=== PATIENT | female | born 1955 | race Two or more races ===

== ENCOUNTER 2025-01-11 18:34 | Emergency (ER) | payer OTHER ==
[~2025-01-11] VITALS: Ht 170.2 cm; Wt 90.7 kg
[2025-01-11] MEDS ORDERED: HUMULIN 70100 UNIT/2 SUBCUTANEO (18:40)
[2025-01-11] MEDS ORDERED: AVAPRO300 MG PO (18:40)
[2025-01-11] MEDS ORDERED: KETOROLAC TROMETHAMINE 30 MG VIAL IV ONE (20:45)
[2025-01-11] MEDS ORDERED: KETOROLAC TROMETHAMINE 30 MG VIAL IM STA (21:25)
[2025-01-11] MEDS ORDERED: 8 HOUR650 MG PO (21:48)
== END 2025-01-11 22:23 | disposition home or self-care (01) ==
LOC: ER 18:37
DX: S00.93XA Contusion of unspecified part of head, initial encounter (principal); S20.213A Contusion of bilateral front wall of thorax, initial encounter; S80.12XA Contusion of left lower leg, initial encounter; S80.11XA Contusion of right lower leg, initial encounter; W18.39XA Other fall on same level, initial encounter; Y93.89 Activity, other specified; Y92.018 Other place in single-family (private) house as the place of occurrence of the external cause; Y99.9 Unspecified external cause status; E11.9 Type 2 diabetes mellitus without complications; Z79.4 Long term (current) use of insulin; I10 Essential (primary) hypertension; N28.9 Disorder of kidney and ureter, unspecified; Z88.8 Allergy status to other drugs, medicaments and biological substances
CPT/HCPCS: 70450; 71110; 73610; 96365; 96372; 99284; J1885

== ENCOUNTER 2025-10-06 12:26 | Inpatient (IN) | payer OTHER ==
[~2025-10-06] VITALS: Ht 152.4 cm; Wt 90.7 kg
[~2025-10-06 12:26] MED LIST: 8 HOUR650 MG PO; AVAPRO300 MG PO; HUMULIN 70100 UNIT/2 SUBCUTANEO
[2025-10-06] MEDS ORDERED: LYRICA150 MG PO (12:37)
[2025-10-06] MEDS ORDERED: 0.9 % SODIUM CHLORIDE 1,000 ML IV ONE (13:15)
[2025-10-06 14:00] LABS: BASO % 0.3 % (0.1-1.2); EOS # 0.00 (0.04-0.54); EOS % 0.0 % (0.7-7.0); LYMPH # 0.85 (1.18-3.74); LYMPH % 6.3 % (19.3-53.1); MEAN PLATELET VOLUME 11.80 fl (9.4-12.4); MONO # 1.68 (0.24-0.82); NEUT # 10.14 (1.56-6.13); NEUT % 75.3 % (34.0-71.1); RED CELL DISTRIBUTION WIDTH 13.2 % (11.6-14.4)
[2025-10-06 14:20] LABS: ALT/SGPT 20.0 U/L (12-78); AST/SGOT 22.0 U/L (15-37); BILIRUBIN TOTAL 1.09 mg/dL (0.3-1.2); BILIRUBIN,CONJUGATED 0.34 mg/dL (0.0-0.2); BUN CREA RATIO 23.0 (7.0-25.0); CREATININE SERUM 1.65 mg/dL (0.55-1.02); GFR 30.58; OSMOLALITY SERUM 291.0 MOSM/KG (275-295)
[2025-10-06 14:22] LABS: GLUCOSE FASTING 242.0 mg/dL (65-100)
[2025-10-06 14:25] LABS: MONO % 12.5 % (4.7-12.5)
[2025-10-06 14:26] LABS: BAND MAN 2.0 %; LYMPHOCYTE MAN 4.0 %; MONOCYTE MAN 12.0 %; NEUTROPHILS MAN 82.0 %
[2025-10-06] MEDS ORDERED: INSULIN LISPRO 1,000 UNIT/10 ML UNITS SUBCUTANEO ONE (15:00)
[2025-10-06 15:21] LABS: URINE APPEARANCE Clear; URINE BILIRRUBIN Negative (NEGATIVE); URINE BLOOD Trace; URINE COLOR Yellow; URINE GLUCOSE Negative (NEGATIVE); URINE KETONE Negative (NEGATIVE); URINE LEUKOCYTE Negative; URINE NITRATE Negative; URINE PROTEIN 30 (NEGATIVE); URINE UROBILINOGEN 0.2 E.U./dl
[2025-10-06 15:26] LABS: URINE BACTERIA 5.9 uL (0.0-1933); URINE CAST 3.95 uL (0.0-1.40); URINE EPITHELIAL CELLS 26.5 uL (0.0-38.8); URINE RBC 3.5 uL (0.0-20.8); URINE WBC 5.2 uL (0.0-23.2)
[2025-10-06 15:52] LABS: COVID-19 AG NEGATIVE (NEGATIVE)
[2025-10-06 15:54] LABS: TYPE CELLS SQUAMOUS
[2025-10-06] MEDS ORDERED: CEFTRIAXONE SODIUM 2,000 MG VIAL IV ONE (16:30)
[2025-10-06] MEDS ORDERED: ACETAMINOPHEN 500 MG GEL..CAP PO ONE (16:45)
[2025-10-06] MEDS ORDERED: CIPROFLOXACIN IN 5 % DEXTROSE 200 ML IV SCH (18:00)
[2025-10-06] MEDS ORDERED: LACTOBACILLUS ACIDOPHILUS 1 CAP CAP PO SCH (18:04)
[2025-10-06] MEDS ORDERED: INSULIN LISPRO 1,000 UNIT/10 ML UNITS SUBCUTANEO PRN ×2 (18:15)
[2025-10-06] MEDS ORDERED: DEXTROSE 50 % IN WATER 0.5 G/ML DISP.SYRIN IV PRN (18:15)
[2025-10-06 19:43] VITALS: BP 114/64
[2025-10-06] MEDS ORDERED: ACETAMINOPHEN 500 MG GEL..CAP PO SCH (20:00)
[2025-10-06] MEDS ORDERED: MORPHINE SULFATE 4 MG/ML CARTRIDGE IV PRN (21:30)
[2025-10-06 22:53] VITALS: BP 130/60; O2SAT 97
[2025-10-07 01:11] VITALS: BP 112/63; O2SAT 97
[2025-10-07] MEDS ORDERED: 0.9 % SODIUM CHLORIDE 1,000 ML IV SCH (05:30)
[2025-10-07 06:59] LABS: BASO % 0.2 % (0.1-1.2); EOS # 0.00 (0.04-0.54); EOS % 0.0 % (0.7-7.0); LYMPH # 0.87 (1.18-3.74); LYMPH % 4.7 % (19.3-53.1); MEAN PLATELET VOLUME 12.10 fl (9.4-12.4); MONO # 2.20 (0.24-0.82); MONO % 11.8 % (4.7-12.5); NEUT # 15.12 (1.56-6.13); NEUT % 81.2 % (34.0-71.1); RED CELL DISTRIBUTION WIDTH 13.4 % (11.6-14.4)
[2025-10-07 07:22] LABS: INR 1.11
[2025-10-07] MEDS ORDERED: IRBESARTAN 300 MG TABLET PO SCH (09:00)
[2025-10-07] MEDS ORDERED: ROSUVASTATIN CALCIUM 20 MG TABLET PO SCH (09:00)
[2025-10-07] MEDS ORDERED: CEFTRIAXONE SODIUM 2,000 MG in 0.9 % SODIUM CHLORIDE 100 ML IV SCH (09:00)
[2025-10-07] MEDS ORDERED: FAMOTIDINE/PF 20 MG in 0.9 % SODIUM CHLORIDE 100 ML IV SCH (09:00)
[2025-10-07 09:23] VITALS: BP 127/66; O2SAT 97
[2025-10-07] MEDS ORDERED: INSULIN NPH HUM/REG INSULIN HM 1,000 UNIT/10 ML UNITS SUBCUTANEO NR (13:00)
[2025-10-07] MEDS ORDERED: DIATRIZOATE MEGLUMINE, SODIUM 30 ML BOTTLE PO NR (16:00)
[2025-10-07] MEDS ORDERED: AZITHROMYCIN 500 MG VIAL IV SCH (17:00)
[2025-10-07] MEDS ORDERED: LACTOBACILLUS ACIDOPHILUS 1 CAP CAP PO SCH (17:00)
[2025-10-07 17:43] VITALS: BP 124/71
[2025-10-07 17:46] VITALS: BP 118/62
[2025-10-07] MEDS ORDERED: INSULIN NPH HUM/REG INSULIN HM 1,000 UNIT/10 ML UNITS SUBCUTANEO SCH (20:00)
[2025-10-08 03:20] VITALS: BP 105/59; O2SAT 97
[2025-10-08 08:55] VITALS: BP 102/53; O2SAT 98
[2025-10-08] MEDS ORDERED: INSULIN NPH HUM/REG INSULIN HM 1,000 UNIT/10 ML UNITS SUBCUTANEO SCH (09:00)
[2025-10-08 12:35] LABS: BASO % 0.2 % (0.1-1.2); EOS # 0.02 (0.04-0.54); EOS % 0.1 % (0.7-7.0); LYMPH # 1.18 (1.18-3.74); LYMPH % 7.3 % (19.3-53.1); MEAN PLATELET VOLUME 11.70 fl (9.4-12.4); MONO # 1.52 (0.24-0.82); MONO % 9.4 % (4.7-12.5); NEUT # 12.70 (1.56-6.13); NEUT % 78.8 % (34.0-71.1); RED CELL DISTRIBUTION WIDTH 13.3 % (11.6-14.4)
[2025-10-08 13:04] LABS: ALT/SGPT 19.0 U/L (12-78); AST/SGOT 31.0 U/L (15-37); BILIRUBIN TOTAL 0.43 mg/dL (0.3-1.2); BUN CREA RATIO 29.0 (7.0-25.0); CREATININE SERUM 1.49 mg/dL (0.55-1.02); GFR 34.4; GLOBULINA 3.4 G/DL (2.4-3.5); GLUCOSE FASTING 335.0 mg/dL (65-100); OSMOLALITY SERUM 294.0 MOSM/KG (275-295)
[2025-10-08 13:09] LABS: LDH 262.0 U/L (84-246)
[2025-10-08 18:19] VITALS: BP 125/65
[2025-10-09 02:41] VITALS: BP 103/61; O2SAT 96
[2025-10-09 08:27] VITALS: BP 94/57; O2SAT 96
[2025-10-09] MEDS ORDERED: INSULIN NPH HUM/REG INSULIN HM 1,000 UNIT/10 ML UNITS SUBCUTANEO SCH ×2 (09:01→17:00)
[2025-10-09] MEDS ORDERED: DIATRIZOATE MEGLUMINE, SODIUM 30 ML BOTTLE PO NR (11:15)
[2025-10-09] MEDS ORDERED: PIPERACILLIN/TAZOBACTAM SODIUM 3.375 GM in DEXTROSE 5 % IN WATER 100 ML IV NR (14:45)
[2025-10-09] MEDS ORDERED: VANCOMYCIN HCL 1,000 MG VIAL IV SCH (16:00)
[2025-10-09 18:03] VITALS: BP 143/77
[2025-10-09] MEDS ORDERED: PIPERACILLIN/TAZOBACTAM SODIUM 3.375 GM in DEXTROSE 5 % IN WATER 100 ML IV SCH (20:00)
[2025-10-10 02:11] VITALS: BP 130/70; O2SAT 99
[2025-10-10 06:48] LABS: BASO % 0.1 % (0.1-1.2); EOS # 0.01 (0.04-0.54); EOS % 0.1 % (0.7-7.0); LYMPH # 0.81 (1.18-3.74); LYMPH % 5.5 % (19.3-53.1); MEAN PLATELET VOLUME 11.00 fl (9.4-12.4); MONO # 2.21 (0.24-0.82); NEUT # 11.24 (1.56-6.13); NEUT % 75.8 % (34.0-71.1); RED CELL DISTRIBUTION WIDTH 13.6 % (11.6-14.4)
[2025-10-10 07:36] LABS: ALT/SGPT 29.0 U/L (12-78); AST/SGOT 43.0 U/L (15-37); BILIRUBIN TOTAL 0.61 mg/dL (0.3-1.2); BUN CREA RATIO 22.0 (7.0-25.0); CREATININE SERUM 1.34 mg/dL (0.55-1.02); GFR 38.88; GLOBULINA 3.3 G/DL (2.4-3.5); OSMOLALITY SERUM 294.0 MOSM/KG (275-295)
[2025-10-10 07:38] LABS: GLUCOSE FASTING 313.0 mg/dL (65-100)
[2025-10-10 07:57] LABS: BAND MAN 5.0 %; LYMPHOCYTE MAN 10.0 %; MONO % 14.9 % (4.7-12.5); NEUTROPHILS MAN 80.0 %
[2025-10-10 08:54] VITALS: BP 152/74; O2SAT 100
[2025-10-10] MEDS ORDERED: MAGNESIUM SULFATE IN WATER 2 GM/50 ML PIGGYBAG IV NR (13:00)
[2025-10-10] MEDS ORDERED: POTASSIUM PHOS,M-BASIC-D-BASIC 3 MM/ML VIAL IV NR (15:00)
[2025-10-10] MEDS ORDERED: LINEZOLID 600 MG TABLET PO SCH (17:00)
[2025-10-10 22:56] VITALS: BP 114/60
[2025-10-11 03:45] VITALS: BP 106/55; O2SAT 100
[2025-10-11 05:44] LABS: BASO % 0.4 % (0.1-1.2); EOS # 0.03 (0.04-0.54); EOS % 0.2 % (0.7-7.0); LYMPH # 1.30 (1.18-3.74); LYMPH % 8.9 % (19.3-53.1); MEAN PLATELET VOLUME 10.50 fl (9.4-12.4); MONO # 1.41 (0.24-0.82); MONO % 9.6 % (4.7-12.5); NEUT # 10.96 (1.56-6.13); NEUT % 74.7 % (34.0-71.1); RED CELL DISTRIBUTION WIDTH 13.9 % (11.6-14.4)
[2025-10-11 06:45] LABS: BAND MAN 7.0 %; LYMPHOCYTE MAN 10.0 %; MONOCYTE MAN 10.0 %; MYELOCYTE 1.0 %; NEUTROPHILS MAN 71.0 %
[2025-10-11 06:47] LABS: ALT/SGPT 60.0 U/L (12-78); AST/SGOT 88.0 U/L (15-37); BILIRUBIN TOTAL 0.49 mg/dL (0.3-1.2); BUN CREA RATIO 18.0 (7.0-25.0); CREATININE SERUM 1.42 mg/dL (0.55-1.02); GFR 36.36; GLOBULINA 3.9 G/DL (2.4-3.5); GLUCOSE FASTING 165.0 mg/dL (65-100); OSMOLALITY SERUM 287.0 MOSM/KG (275-295)
[2025-10-11 08:00] VITALS: BP 155/76; O2SAT 97
[2025-10-11] MEDS ORDERED: AZITHROMYCIN 500 MG VIAL IV ONE (15:59)
[2025-10-11 19:10] VITALS: BP 129/67; O2SAT 100
[2025-10-12 02:25] VITALS: BP 150/73; O2SAT 100
[2025-10-12] MEDS ORDERED: SODIUM CHLORIDE 0.45 % 1,000 ML IV SCH (06:30)
[2025-10-12 08:00] VITALS: BP 134/73; O2SAT 93
[2025-10-12] MEDS ORDERED: CLOPIDOGREL BISULFATE 75 MG TABLET PO SCH (09:00)
[2025-10-12] MEDS ORDERED: AZITHROMYCIN 500 MG VIAL IV ONE (15:57)
[2025-10-12] MEDS ORDERED: CEFAZOLIN SODIUM 2,000 MG in 0.9 % SODIUM CHLORIDE 100 ML IV SCH (17:00)
[2025-10-12 17:53] VITALS: BP 154/77
[2025-10-12 19:20] LABS: BASO % 0.3 % (0.1-1.2); EOS # 0.03 (0.04-0.54); EOS % 0.2 % (0.7-7.0); LYMPH # 1.46 (1.18-3.74); LYMPH % 11.3 % (19.3-53.1); MEAN PLATELET VOLUME 10.70 fl (9.4-12.4); MONO # 1.56 (0.24-0.82); NEUT # 8.11 (1.56-6.13); NEUT % 63.0 % (34.0-71.1); RED CELL DISTRIBUTION WIDTH 14.2 % (11.6-14.4)
[2025-10-12 20:00] LABS: MONO % 12.1 % (4.7-12.5); NEUTROPHILS MAN 62.0 %
[2025-10-12 20:01] LABS: EOSINOPHIL MAN 1.0 %; LYMPHOCYTE MAN 13.0 %; METAMYELOCYTE 4.0 %; MONOCYTE MAN 11.0 %; MYELOCYTE 3.0 %
[2025-10-13 02:50] VITALS: BP 118/67; O2SAT 95
[2025-10-13 08:54] VITALS: BP 181/93; O2SAT 97
[2025-10-13 16:07] LABS: BASO % 0.9 % (0.1-1.2); EOS # 0.04 (0.04-0.54); EOS % 0.3 % (0.7-7.0); LYMPH # 1.57 (1.18-3.74); LYMPH % 11.2 % (19.3-53.1); MEAN PLATELET VOLUME 10.80 fl (9.4-12.4); MONO # 1.89 (0.24-0.82); NEUT # 8.47 (1.56-6.13); NEUT % 60.1 % (34.0-71.1); RED CELL DISTRIBUTION WIDTH 13.9 % (11.6-14.4)
[2025-10-13 16:42] LABS: ALT/SGPT 53.0 U/L (12-78); AST/SGOT 43.0 U/L (15-37); BILIRUBIN TOTAL 0.76 mg/dL (0.3-1.2); BUN CREA RATIO 16.0 (7.0-25.0); CREATININE SERUM 1.11 mg/dL (0.55-1.02); GFR 48.32; GLOBULINA 4.0 G/DL (2.4-3.5); GLUCOSE FASTING 146.0 mg/dL (65-100); OSMOLALITY SERUM 282.0 MOSM/KG (275-295)
[2025-10-13] MEDS ORDERED: LINEZOLID 600 MG TABLET PO SCH (17:00)
[2025-10-13] MEDS ORDERED: AZITHROMYCIN 500 MG VIAL IV ONE (17:06)
[2025-10-13 18:10] VITALS: BP 155/67
[2025-10-13 18:26] LABS: BAND MAN 4.0 %; LYMPHOCYTE MAN 6.0 %; METAMYELOCYTE 6.0 %; MONO % 13.4 % (4.7-12.5); MONOCYTE MAN 10.0 %; MYELOCYTE 7.0 %; PROMYELOCYTE 1.0 %
[2025-10-13 18:27] LABS: NEUTROPHILS MAN 66.0 %
[2025-10-13] MEDS ORDERED: PIPERACILLIN/TAZOBACTAM SODIUM 3.375 GM in DEXTROSE 5 % IN WATER 100 ML IV SCH (20:00)
[2025-10-14 02:38] VITALS: BP 135/72; O2SAT 95
[2025-10-14] MEDS ORDERED: PIPERACILLIN/TAZOBACTAM SODIUM 3.375 GM VIAL IV ONE ×2 (08:19→11:13)
[2025-10-14 08:36] VITALS: BP 156/75; O2SAT 97
[2025-10-14 12:03] LABS: ob POSITIVE (NEGATIVE)
[2025-10-14] MEDS ORDERED: SODIUM CHLORIDE 0.45 % 1,000 ML IV SCH (12:30)
[2025-10-14] MEDS ORDERED: BISMUTH SUBSALICYLATE 524 MG/30 ML BLIST.PACK PO PRN (15:45)
[2025-10-14 18:47] VITALS: BP 153/72; O2SAT 100
[2025-10-15 02:26] VITALS: BP 150/65; O2SAT 99
[2025-10-15 07:19] LABS: BASO % 0.5 % (0.1-1.2); EOS # 0.04 (0.04-0.54); EOS % 0.3 % (0.7-7.0); LYMPH # 1.72 (1.18-3.74); LYMPH % 12.0 % (19.3-53.1); MEAN PLATELET VOLUME 10.80 fl (9.4-12.4); MONO # 2.11 (0.24-0.82); NEUT # 8.80 (1.56-6.13); NEUT % 61.3 % (34.0-71.1); RED CELL DISTRIBUTION WIDTH 13.8 % (11.6-14.4)
[2025-10-15 07:49] LABS: ALT/SGPT 32.0 U/L (12-78); AST/SGOT 27.0 U/L (15-37); BILIRUBIN TOTAL 0.72 mg/dL (0.3-1.2); BUN CREA RATIO 21.0 (7.0-25.0); CREATININE SERUM 1.17 mg/dL (0.55-1.02); GFR 45.47; GLOBULINA 3.5 G/DL (2.4-3.5); OSMOLALITY SERUM 290.0 MOSM/KG (275-295)
[2025-10-15 08:20] LABS: GLUCOSE FASTING 216.0 mg/dL (65-100)
[2025-10-15] MEDS ORDERED: INSULIN NPH HUM/REG INSULIN HM 1,000 UNIT/10 ML UNITS SUBCUTANEO SCH (09:00)
[2025-10-15 09:20] LABS: BAND MAN 9.0 %; LYMPHOCYTE MAN 10.0 %; MONO % 14.7 % (4.7-12.5); NEUTROPHILS MAN 64.0 %
[2025-10-15 09:21] LABS: METAMYELOCYTE 1.0 %; MONOCYTE MAN 9.0 %; MYELOCYTE 3.0 %
[2025-10-15 09:28] VITALS: BP 153/76; O2SAT 97
[2025-10-15] MEDS ORDERED: CHOLESTYRAMINE/ASPARTAME LIGHT 4 G/PKT PACKET PO SCH (17:00)
[2025-10-15] MEDS ORDERED: LINEZOLID IN DEXTROSE 5% 300 ML IV SCH (17:00)
[2025-10-15 17:51] VITALS: BP 158/72; O2SAT 100
[2025-10-15] MEDS ORDERED: MEROPENEM 500 MG/VIAL VIAL IV SCH (18:00)
[2025-10-15] MEDS ORDERED: MAGNESIUM SULFATE IN WATER 50 ML IV ONE (18:30)
[2025-10-16 02:16] VITALS: BP 130/59; O2SAT 98
[2025-10-16 09:21] VITALS: BP 153/81; O2SAT 97
[2025-10-16] MEDS ORDERED: PREGABALIN PO NR (09:45)
[2025-10-16 17:27] LABS: BUN CREA RATIO 18.0 (7.0-25.0); CREATININE SERUM 1.08 mg/dL (0.55-1.02); GFR 49.87
[2025-10-16 17:33] LABS: OSMOLALITY SERUM 292.0 MOSM/KG (275-295)
[2025-10-16 17:36] LABS: GLUCOSE FASTING 255.0 mg/dL (65-100)
[2025-10-16] MEDS ORDERED: POTASSIUM PHOS,M-BASIC-D-BASIC 15 MM in 0.9 % SODIUM CHLORIDE 250 ML IV ONE (18:00)
[2025-10-16 18:12] VITALS: BP 150/73; O2SAT 100
[2025-10-17 03:09] VITALS: BP 156/75; O2SAT 99
[2025-10-17] MEDS ORDERED: PREGABALIN PO SCH (09:00)
[2025-10-17] MEDS ORDERED: INSULIN NPH HUM/REG INSULIN HM 1,000 UNIT/10 ML UNITS SUBCUTANEO SCH ×2 (09:00→17:00)
[2025-10-17 09:37] LABS: ALT/SGPT 35.0 U/L (12-78); AST/SGOT 27.0 U/L (15-37); BILIRUBIN TOTAL 0.61 mg/dL (0.3-1.2); BUN CREA RATIO 15.0 (7.0-25.0); CREATININE SERUM 1.14 mg/dL (0.55-1.02); GFR 46.85; GLOBULINA 4.1 G/DL (2.4-3.5); OSMOLALITY SERUM 291.0 MOSM/KG (275-295)
[2025-10-17 09:39] LABS: GLUCOSE FASTING 287.0 mg/dL (65-100)
[2025-10-17 11:24] VITALS: BP 162/82; O2SAT 98
[2025-10-17 16:21] VITALS: BP 151/74; O2SAT 96
[2025-10-18 00:52] VITALS: BP 125/66; O2SAT 98
[2025-10-18] MEDS ORDERED: MAGNESIUM SULFATE IN WATER 50 ML IV SCH (08:00)
[2025-10-18] MEDS ORDERED: INSULIN NPH HUM/REG INSULIN HM 1,000 UNIT/10 ML UNITS SUBCUTANEO SCH (08:00)
[2025-10-18] MEDS ORDERED: 0.9 % SODIUM CHLORIDE 1,000 ML IV SCH (08:00)
[2025-10-18] MEDS ORDERED: PREGABALIN 100 MG CAPSULE PO SCH (09:00)
[2025-10-18] MEDS ORDERED: AMINO ACIDS 1 EACH TABLET PO SCH (09:00)
[2025-10-18 09:07] VITALS: BP 159/80; O2SAT 99
[2025-10-18] MEDS ORDERED: POTASSIUM PHOS,M-BASIC-D-BASIC 18 MM in 0.9 % SODIUM CHLORIDE 250 ML IV ONE (10:00)
[2025-10-18] MEDS ORDERED: MEROPENEM 500 MG/VIAL VIAL IV SCH (13:00)
[2025-10-18] MEDS ORDERED: AMLODIPINE BESYLATE 5 MG TABLET PO SCH (17:00)
[2025-10-18 18:07] VITALS: BP 160/77; O2SAT 98
[2025-10-19 03:08] VITALS: BP 130/68; O2SAT 96
[2025-10-19 06:19] LABS: BASO % 0.6 % (0.1-1.2); EOS # 0.05 (0.04-0.54); EOS % 0.6 % (0.7-7.0); LYMPH # 1.89 (1.18-3.74); LYMPH % 21.9 % (19.3-53.1); MEAN PLATELET VOLUME 10.10 fl (9.4-12.4); MONO # 1.46 (0.24-0.82); NEUT # 4.62 (1.56-6.13); NEUT % 53.6 % (34.0-71.1); RED CELL DISTRIBUTION WIDTH 13.5 % (11.6-14.4)
[2025-10-19 06:52] LABS: BUN CREA RATIO 36.0 (7.0-25.0); CREATININE SERUM 0.99 mg/dL (0.55-1.02); GFR 55.14; GLUCOSE FASTING 194.0 mg/dL (65-100); OSMOLALITY SERUM 295.0 MOSM/KG (275-295)
[2025-10-19 07:09] LABS: BAND MAN 2.0 %; EOSINOPHIL MAN 1.0 %; LYMPHOCYTE MAN 19.0 %; MONO % 16.9 % (4.7-12.5); MONOCYTE MAN 16.0 %; NEUTROPHILS MAN 59.0 %
[2025-10-19] MEDS ORDERED: INSULIN NPH HUM/REG INSULIN HM 1,000 UNIT/10 ML UNITS SUBCUTANEO SCH ×2 (08:00→17:00)
[2025-10-19 09:21] VITALS: BP 160/75; O2SAT 98
[2025-10-19 18:02] VITALS: BP 148/74
[2025-10-20 03:10] VITALS: BP 166/85; O2SAT 98
[2025-10-20] MEDS ORDERED: INSULIN NPH HUM/REG INSULIN HM 1,000 UNIT/10 ML UNITS SUBCUTANEO SCH (08:00)
[2025-10-20 09:20] VITALS: BP 156/79; O2SAT 98
[2025-10-20 21:58] VITALS: BP 137/69
[2025-10-21 03:02] VITALS: BP 130/72; O2SAT 97
[2025-10-21] MEDS ORDERED: INSULIN NPH HUM/REG INSULIN HM 1,000 UNIT/10 ML UNITS SUBCUTANEO SCH ×2 (09:00→17:00)
[2025-10-21 10:13] VITALS: BP 134/71; O2SAT 97
[2025-10-21 21:27] VITALS: BP 104/65
[2025-10-22 01:01] VITALS: BP 135/63; O2SAT 97
[2025-10-22] MEDS ORDERED: INSULIN NPH HUM/REG INSULIN HM 1,000 UNIT/10 ML UNITS SUBCUTANEO SCH (17:00)
[2025-10-22 17:44] VITALS: BP 127/74; O2SAT 100
[2025-10-23 02:28] VITALS: BP 111/65; O2SAT 96
[2025-10-23 10:02] VITALS: BP 145/69; O2SAT 97
[2025-10-23 18:19] VITALS: BP 154/76; O2SAT 100
[2025-10-23] MEDS ORDERED: BISMUTH SUBSALICYLATE 524 MG/30 ML BLIST.PACK PO SCH (21:42)
[2025-10-24 01:04] VITALS: BP 123/71; O2SAT 97
[2025-10-24 06:16] LABS: BASO % 0.5 % (0.1-1.2); EOS # 0.05 (0.04-0.54); EOS % 0.8 % (0.7-7.0); LYMPH # 2.10 (1.18-3.74); LYMPH % 33.8 % (19.3-53.1); MEAN PLATELET VOLUME 10.20 fl (9.4-12.4); MONO # 1.27 (0.24-0.82); NEUT # 2.55 (1.56-6.13); NEUT % 41.0 % (34.0-71.1); RED CELL DISTRIBUTION WIDTH 13.2 % (11.6-14.4)
[2025-10-24 07:05] LABS: ALT/SGPT 26.0 U/L (12-78); AST/SGOT 28.0 U/L (15-37); BILIRUBIN TOTAL 0.46 mg/dL (0.3-1.2); BUN CREA RATIO 40.0 (7.0-25.0); CREATININE SERUM 1.07 mg/dL (0.55-1.02); GFR 50.41; GLOBULINA 4.3 G/DL (2.4-3.5); GLUCOSE FASTING 103.0 mg/dL (65-100); OSMOLALITY SERUM 294.0 MOSM/KG (275-295)
[2025-10-24 07:17] LABS: EOSINOPHIL MAN 1.0 %; LYMPHOCYTE MAN 36.0 %; METAMYELOCYTE 1.0 %; MONO % 20.5 % (4.7-12.5); MONOCYTE MAN 17.0 %; NEUTROPHILS MAN 43.0 %
[2025-10-24 08:18] VITALS: BP 145/76; O2SAT 97
[2025-10-24] MEDS ORDERED: HYDROCORTISONE 2.5% 30 GM TUBE RECTAL SCH (09:00)
[2025-10-24 21:26] VITALS: BP 151/88
[2025-10-25 00:48] VITALS: BP 115/60; O2SAT 97
[2025-10-25 10:36] VITALS: BP 130/65; O2SAT 98
[2025-10-25] MEDS ORDERED: PREGABALIN 100 MG CAPSULE PO SCH (17:00)
[2025-10-26 01:44] VITALS: BP 135/70; O2SAT 97
[2025-10-26 08:27] LABS: BASO % 0.6 % (0.1-1.2); EOS # 0.05 (0.04-0.54); EOS % 1.0 % (0.7-7.0); LYMPH # 1.89 (1.18-3.74); LYMPH % 37.4 % (19.3-53.1); MEAN PLATELET VOLUME 10.20 fl (9.4-12.4); MONO # 1.04 (0.24-0.82); NEUT # 1.85 (1.56-6.13); NEUT % 36.4 % (34.0-71.1); RED CELL DISTRIBUTION WIDTH 13.3 % (11.6-14.4)
[2025-10-26 08:59] VITALS: BP 150/73; O2SAT 98
[2025-10-26] MEDS ORDERED: ZINC OXIDE 30 GM,NYSTATIN 30 GM,SILVER SULFADIAZINE 50 GM TOP SCH ×2 (09:00→17:00)
[2025-10-26 09:06] LABS: ALT/SGPT 28.0 U/L (12-78); AST/SGOT 30.0 U/L (15-37); BAND MAN 4.0 %; BILIRUBIN TOTAL 0.43 mg/dL (0.3-1.2); BUN CREA RATIO 36.0 (7.0-25.0); CREATININE SERUM 0.97 mg/dL (0.55-1.02); GFR 56.45; GLOBULINA 4.2 G/DL (2.4-3.5); GLUCOSE FASTING 141.0 mg/dL (65-100); LYMPHOCYTE MAN 38.0 %; MONO % 20.6 % (4.7-12.5); MONOCYTE MAN 15.0 %; MYELOCYTE 1.0 %; NEUTROPHILS MAN 36.0 %; OSMOLALITY SERUM 295.0 MOSM/KG (275-295)
[2025-10-26 21:48] VITALS: BP 135/84
[2025-10-27 01:42] VITALS: BP 103/58; O2SAT 97
[2025-10-27 08:53] VITALS: BP 116/69; O2SAT 98
[2025-10-27] MEDS ORDERED: INSULIN NPH HUM/REG INSULIN HM 1,000 UNIT/10 ML UNITS SUBCUTANEO SCH (17:00)
[2025-10-27 18:28] VITALS: BP 160/84; O2SAT 97
[2025-10-28 01:28] VITALS: BP 121/68; O2SAT 96
[2025-10-28 08:50] VITALS: BP 145/82; O2SAT 99
[2025-10-28 18:10] VITALS: BP 130/76; O2SAT 100
[2025-10-29 03:49] VITALS: BP 114/64; O2SAT 99
[2025-10-29 07:40] LABS: BASO % 0.5 % (0.1-1.2); EOS # 0.05 (0.04-0.54); EOS % 0.8 % (0.7-7.0); LYMPH # 2.11 (1.18-3.74); LYMPH % 35.0 % (19.3-53.1); MEAN PLATELET VOLUME 10.50 fl (9.4-12.4); MONO # 1.05 (0.24-0.82); NEUT # 2.47 (1.56-6.13); NEUT % 41.2 % (34.0-71.1); RED CELL DISTRIBUTION WIDTH 13.4 % (11.6-14.4)
[2025-10-29 07:42] LABS: MONO % 17.4 % (4.7-12.5)
[2025-10-29 07:50] LABS: ALT/SGPT 26.0 U/L (12-78); AST/SGOT 29.0 U/L (15-37); BILIRUBIN TOTAL 0.51 mg/dL (0.3-1.2); BUN CREA RATIO 37.0 (7.0-25.0); CREATININE SERUM 1.03 mg/dL (0.55-1.02); GFR 52.67; GLOBULINA 4.1 G/DL (2.4-3.5); GLUCOSE FASTING 71.0 mg/dL (65-100); OSMOLALITY SERUM 294.0 MOSM/KG (275-295)
[2025-10-29 11:20] VITALS: BP 129/72; O2SAT 97
[2025-10-29] MEDS ORDERED: INSULIN NPH HUM/REG INSULIN HM 1,000 UNIT/10 ML UNITS SUBCUTANEO SCH (17:00)
[2025-10-29 19:48] VITALS: BP 134/71
[2025-10-30] MEDS ORDERED: BISMUTH SUBSALICYLATE 524 MG/30 ML BLIST.PACK PO SCH
[2025-10-30 02:12] VITALS: BP 123/75; O2SAT 100
[2025-10-30] MEDS ORDERED: EPOETIN ALFA-EPBX 10,000 UNIT/ML VIAL (Retacrit) SUBCUTANEO SCH (09:00)
[2025-10-30 09:35] VITALS: BP 126/72; O2SAT 98
[2025-10-30 19:47] VITALS: BP 165/75
[2025-10-31 02:41] VITALS: BP 115/69; O2SAT 99
[2025-10-31 06:11] LABS: BASO % 0.4 % (0.1-1.2); EOS # 0.07 (0.04-0.54); EOS % 1.3 % (0.7-7.0); LYMPH # 2.23 (1.18-3.74); LYMPH % 40.5 % (19.3-53.1); MEAN PLATELET VOLUME 10.80 fl (9.4-12.4); MONO # 0.71 (0.24-0.82); NEUT # 2.08 (1.56-6.13); NEUT % 37.6 % (34.0-71.1); RED CELL DISTRIBUTION WIDTH 14.3 % (11.6-14.4)
[2025-10-31 07:10] LABS: ALT/SGPT 25.0 U/L (12-78); AST/SGOT 27.0 U/L (15-37); BILIRUBIN TOTAL 0.54 mg/dL (0.3-1.2); BUN CREA RATIO 37.0 (7.0-25.0); CREATININE SERUM 0.94 mg/dL (0.55-1.02); GFR 58.53; GLOBULINA 4.3 G/DL (2.4-3.5); GLUCOSE FASTING 77.0 mg/dL (65-100); OSMOLALITY SERUM 294.0 MOSM/KG (275-295)
[2025-10-31 07:23] LABS: BAND MAN 2.0 %; EOSINOPHIL MAN 2.0 %; LYMPHOCYTE MAN 38.0 %; METAMYELOCYTE 2.0 %; MONO % 12.9 % (4.7-12.5); MONOCYTE MAN 11.0 %; NEUTROPHILS MAN 41.0 %
[2025-10-31] MEDS ORDERED: INSULIN NPH HUM/REG INSULIN HM 1,000 UNIT/10 ML UNITS SUBCUTANEO SCH ×2 (08:00→17:00)
[2025-10-31] MEDS ORDERED: CEFAZOLIN SODIUM 2,000 MG in DEXTROSE 5 % IN WATER 100 ML IV SCH (17:00)
[2025-10-31 19:05] VITALS: BP 130/75; O2SAT 100
[2025-11-01 03:00] VITALS: BP 123/67; O2SAT 96
[2025-11-01 09:46] VITALS: BP 127/72; O2SAT 98
[2025-11-01 18:07] VITALS: BP 147/76
[2025-11-02 02:28] VITALS: BP 125/76; O2SAT 98
[2025-11-02 09:34] VITALS: BP 150/76; O2SAT 99
== END 2025-11-02 15:38 | disposition home or self-care (01) | DRG 682 ==
LOC: ER 12:27 → MEDJ 18:39 → O/R 10-10 09:02 → MEDJ 10-10 09:03
PROVIDERS: Emergency Medicine; Internal Medicine; Internal Medicine Infectious Disease; Internal Medicine Nephrology; ADMIT Internal Medicine; ATTEND Internal Medicine
PROC: B020ZZZ Computerized Tomography (CT Scan) of Brain (ICD-10-PCS; principal; 2025-10-06)
PROC: B030ZZZ Magnetic Resonance Imaging (MRI) of Brain (ICD-10-PCS; 2025-10-06)
PROC: BW21ZZZ Computerized Tomography (CT Scan) of Abdomen and Pelvis (ICD-10-PCS; 2025-10-07)
PROC: BR20ZZZ Computerized Tomography (CT Scan) of Cervical Spine (ICD-10-PCS; 2025-10-07)
PROC: BW24ZZZ Computerized Tomography (CT Scan) of Chest and Abdomen (ICD-10-PCS; 2025-10-07)
PROC: B345ZZZ Ultrasonography of Bilateral Common Carotid Arteries (ICD-10-PCS; 2025-10-07)
PROC: B24BYZZ Ultrasonography of Heart with Aorta using Other Contrast (ICD-10-PCS; 2025-10-07)
PROC: 02HV33Z Insertion of Infusion Device into Superior Vena Cava, Percutaneous Approach (ICD-10-PCS; 2025-10-08)
PROC: 30243N1 Transfusion of Nonautologous Red Blood Cells into Central Vein, Percutaneous Approach (ICD-10-PCS; 2025-10-11)
DX: N17.9 Acute kidney failure, unspecified (principal); A41.9 Sepsis, unspecified organism; R65.10 Systemic inflammatory response syndrome (SIRS) of non-infectious origin without acute organ dysfunction; D72.829 Elevated white blood cell count, unspecified; D69.6 Thrombocytopenia, unspecified; I10 Essential (primary) hypertension; E11.9 Type 2 diabetes mellitus without complications; Z79.4 Long term (current) use of insulin; E03.9 Hypothyroidism, unspecified; D64.9 Anemia, unspecified; L97.519 Non-pressure chronic ulcer of other part of right foot with unspecified severity; E66.01 Morbid (severe) obesity due to excess calories
CPT/HCPCS: 70551